=== PATIENT | male | born 1965 | race Caucasian/White ===

== ENCOUNTER 2019-08-12 10:14 | Emergency (ER) | payer BC ==
[~2019-08-12] VITALS: Ht 185.4 cm; Wt 84.9 kg
--- NOTE | 2019-08-12 10:30 | PHYS DOC ---
General Adult EDM: Chief Complaint: BACK PAIN - NO INJURY HPI: HPI: Patient is a 54 year old male presenting to the ED with a chief complaint of back pain radiating to his left chest. Patient states that the pain is been present for the last 1 week. Patient states that the pain is worse when he moves. 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 Patient denies fever, chills, nausea, vomiting, shortness of breath. Patient does admit to being an active smoker but denies alcohol use and drug use. Review of Systems: Review of Systems: Constitutional: Denies fever or chills. [] Eyes: Denies change in visual acuity. [] HENT: Denies nasal congestion or sore throat. [] Respiratory: Denies cough or shortness of breath. [] Cardiovascular: Complains of chest pain GI: Denies abdominal pain, nausea, vomiting : Denies dysuria. [] Musculoskeletal: Thoracic tenderness Neurologic: Denies headache, focal weakness or sensory changes. [] Heart Score: Risk Factors: Risk Factors: DM, Current or recent (<one month) smoker, HTN, HLP, family history of CAD, obesity. Risk Scores: Score 0 - 3: 2.5% MACE over next 6 weeks - Discharge Home Score 4 - 6: 20.3% MACE over next 6 weeks - Admit for Clinical Observation Score 7 - 10: 72.7% MACE over next 6 weeks - Early Invasive Strategies Allergies: Allergies: Allergies Coded Allergies Type Severity Reaction Last Updated Verified No Known Drug Allergies 08/12/19 No Physical Exam: PE: Constitutional: Well developed, well nourished, no acute distress, non-toxic appearance. [] HENT: Normocephalic, atraumatic Eyes: EOMI Neck: Normal range of motion, Supple Cardiovascular:Heart rate regular rhythm Lungs & Thorax: Bilateral breath sounds clear to auscultation [] Abdomen: Bowel sounds normal, soft, no tenderness Extremities: No tenderness, ROM intact Neurologic: Alert and oriented X 3 EKG: EKG: [EKG interpretation: 10:25 AM on 08/12/2019 HR: 56 Sinus rhythm Regular intervals Left axis deviation Nonspecific ST changes ] Radiology/Procedures: Radiology/Procedures: [] Impression: Chest x-ray impression: No acute disease Course & Med Decision Making: Course & Med Decision Making Pertinent Labs and Imaging studies reviewed. (See chart for details) Ordered labs, chest x-ray, EKG, troponin EKG does not show any acute changes. Labs are within normal limits. Troponin is negative. Chest x-ray does not show any acute disease. Patient was also given Toradol and Norflex. UDS is positive for cocaine. Patient requests 1 to 2 days off from work. I recommended that patient get a appointment for stress test. We will not repeat troponin as patient has had this chest pain for over 1 week. Discussed results and plan of care with patient. Patient is instructed to follow up with PCP in one to 2 days. Appropriate discharge instructions given to patient to return to the ED or to seek immediate medical evaluation. Patient is instructed to return to the ED if symptoms worsen or if any concerns. Dragon Disclaimer: Dragon Disclaimer: This electronic medical record was generated, in whole or in part, using a voice recognition dictation system. Departure Departure Impression: Primary Impression: Chest pain Disposition: HOME, SELF-CARE Condition: STABLE Patient Instructions: Chest Pain (Nonspecific) Additional Instructions: Please follow-up with PCP in 1 to 2 days for stress test. Please return to the ED if symptoms worsen or if any concerns. Scripts Cyclobenzaprine Hcl (CYCLOBENZAPRINE HCL) 5 Mg Tablet 10 MG PO PRN TID PRN for PAIN for 5 Days, #15 TAB Prov: SHERIF GASPAR DO 08/12/19 SHERIF GASPAR DO August 12, 2019 10:30
[2019-08-12 11:05] LABS: BARBITURATES NEG (NEG); BENZODIAZEPINES NEG (NEG); CANNABINOIDS NEG (NEG); COCAINE POS (NEG); METHADONE NEG (NEG); OPIATES NEG (NEG); PHENCYCLIDINE NEG (NEG)
[2019-08-12 11:06] LABS: AMPHETAMINE/METHAMPHETAMINE NEG (NEG)
[2019-08-12 11:07] LABS: CALCIUM 8.4 mg/dL (8.5-10.1); CREATININE 1.1 mg/dL (0.7-1.3); GFR 69.5; POTASSIUM 3.9 mmol/L (3.5-5.1)
--- NOTE | 2019-08-12 11:10 | RAD ---
CHEST AP ONLY History: Reason: pain, upper back pain / Spl. Instructions: / History: Comparison: None. Findings: No consolidation or pleural effusion. Normal heart size. No pneumothorax. Prior granulomatous disease within the chest. Impression: 1. No acute cardiopulmonary process. Electronically signed by: Nimesh Sawant DO (08/12/2019 11:08 AM) [id number]
[2019-08-12 11:11] LABS: ALBUMIN/GLOBULIN RATIO 1.1 (1.0-1.7); TOTAL BILIRUBIN 0.5 mg/dL (0.2-1.0); TOTAL PROTEIN 7.5 g/dL (6.4-8.2)
[2019-08-12 11:14] LABS: BASO % 1 % (0-3); EOS # 0.2 x10^3/uL (0.0-0.7); EOS % 3 % (0-3); HEMATOCRIT 41.1 % (39.0-53.0); HEMOGLOBIN 13.7 g/dL (13.0-17.5); LYMPH # 1.1 x10^3/uL (1.0-4.8); LYMPH % 16 % (24-48); MEAN CORPUSCULAR HEMOGLOBIN 30 pg (25-35); MEAN CORPUSCULAR HGB CONC 33 g/dL (31-37); MEAN CORPUSCULAR VOLUME 91 fL (79-100); MONO # 0.5 x10^3/uL (0.0-1.1); MONO % 8 % (0-9); NEUT # 4.8 x10^3/uL (1.8-7.7); NEUT % 73 % (31-73); PLATELET COUNT 224 x10^3/uL (140-400); RED CELL DISTRIBUTION WIDTH 14.2 % (11.5-14.5); WHITE BLOOD COUNT 6.6 x10^3/uL (4.0-11.0)
[2019-08-12 11:23] VITALS: BP 140/87
[2019-08-12] MEDS ORDERED: KETOROLAC 30 MG/ML VIAL. IVP ONE (12:00)
[2019-08-12] MEDS ORDERED: ORPHENADRINE CITRATE 60 MG/2 ML VIAL. IM ONE (12:00)
[2019-08-12] MEDS ORDERED: CYCL5TAB PO (12:14)
--- NOTE | 2019-08-13 07:23 | EKG ---
[facility] [address] [place] [address] Test Date: 2019-08-12 Test Time: 10:25:43 Pat Name: WADE CORTEZ Department: Room: Gender: M Quarter Backer: : 1965 Requested By: SHERIF GASPAR Order Number: [id number] Reading MD: Cedric nAn MD Measurements Intervals Golden Rate: 56 P: 61 OR: 204 QRS: -27 QRSD: 98 T: 19 QT: 388 QTc: 377 Interpretive Statements SINUS RHYTHM Electronically Signed On 08-13-2019 12:23:13 CDT by Cedric Ann MD
== END 2019-08-12 12:24 | disposition home or self-care (01) ==
LOC: ER 10:14
DX: R07.89 Other chest pain (principal); M54.6 Pain in thoracic spine
CPT/HCPCS: 36415; 71045; 80053; 80307; 83690; 84484; 85025; 93005; 96372; 96374; 99285; J1885; J2360